=== PATIENT | female | born 1950 | race Two or more races ===

== ENCOUNTER 2021-09-27 12:45 | Inpatient (IN) | payer OTHER ==
[~2021-09-27] VITALS: Ht 157.5 cm; Wt 76.2 kg
[2021-09-27] MEDS ORDERED: ATACAND HCT 321 EAC1 PO (15:31)
[2021-09-27] MEDS ORDERED: ZOCOR20 MG PO (15:32)
[2021-10-02] MEDS ORDERED: PANTOPRAZOLE SO40 MG (08:15)
[2021-10-02] MEDS ORDERED: FLONASE16 GM (08:15)
[2021-10-02] MEDS ORDERED: DICLOFENAC SOD100 GM (08:16)
== END 2021-10-05 12:43 | disposition home or self-care (01) | DRG 735 ==
LOC: OB/GYN 10-02 05:10 → O/R 10-02 05:10 → SURH 10-02 07:00 → OB/GYN 10-02 13:46
PROVIDERS: ADMIT Specialist; ATTEND Specialist
PROC: 07TD4ZZ Resection of Aortic Lymphatic, Percutaneous Endoscopic Approach (ICD-10-PCS; 2021-10-02)
PROC: 0UT9FZZ Resection of Uterus, Via Natural or Artificial Opening With Percutaneous Endoscopic Assistance (ICD-10-PCS; 2021-10-02)
PROC: 0UT7FZZ Resection of Bilateral Fallopian Tubes, Via Natural or Artificial Opening With Percutaneous Endoscopic Assistance (ICD-10-PCS; 2021-10-02)
PROC: 0UT2FZZ Resection of Bilateral Ovaries, Via Natural or Artificial Opening With Percutaneous Endoscopic Assistance (ICD-10-PCS; 2021-10-02)
PROC: 3E1M38Z Irrigation of Peritoneal Cavity using Irrigating Substance, Percutaneous Approach (ICD-10-PCS; 2021-10-02)
PROC: 07TC4ZZ Resection of Pelvis Lymphatic, Percutaneous Endoscopic Approach (ICD-10-PCS; principal; 2021-10-02 07:00)
DX: C54.1 Malignant neoplasm of endometrium (principal); Z20.822 Contact with and (suspected) exposure to COVID-19

== ENCOUNTER 2021-10-13 14:50 | Inpatient (IN) | payer OTHER ==
[~2021-10-13] VITALS: Ht 157.5 cm; Wt 76.2 kg
[~2021-10-13 14:50] MED LIST: ATACAND HCT 321 EAC1 PO; DICLOFENAC SOD100 GM; FLONASE16 GM; PANTOPRAZOLE SO40 MG; ZOCOR20 MG PO
[2021-10-15] MEDS ORDERED: PANTOPRAZOLE SO40 MG (11:01)
[2021-10-15] MEDS ORDERED: DICLOFENAC SOD100 GM (11:01)
[2021-10-15] MEDS ORDERED: AZELASTINE137 MCG/0. (11:01)
== END 2021-10-17 10:22 | disposition home or self-care (01) | DRG 921 ==
LOC: ER 14:50 → OB/GYN 10-14 11:31
PROVIDERS: ADMIT Student in an Organized Health Care Education/Training Program; ATTEND Student in an Organized Health Care Education/Training Program
PROC: 0W9G30Z Drainage of Peritoneal Cavity with Drainage Device, Percutaneous Approach (ICD-10-PCS; principal; 2021-10-15)
DX: N99.841 Postprocedural hematoma of a genitourinary system organ or structure following other procedure (principal); Z20.822 Contact with and (suspected) exposure to COVID-19

== ENCOUNTER 2021-10-28 17:32 | Emergency (ER) | payer OTHER ==
[~2021-10-28] VITALS: Ht 157.5 cm; Wt 71.7 kg
[~2021-10-28 17:32] MED LIST changes: +AZELASTINE137 MCG/0.
== END 2021-10-29 02:07 | disposition home or self-care (01) ==
LOC: ER 17:32
DX: R63.0 Anorexia (principal)